=== PATIENT | male | born 1995 | race Caucasian/White ===

== ENCOUNTER 2023-06-23 17:49 | Emergency (ER) | payer OTHER ==
[~2023-06-23] VITALS: Ht 180.3 cm; Wt 97.5 kg
[2023-06-23 18:18] VITALS: BP_SYST 132; PULSE 87; RESP 19; TEMP 98.7; O2SAT 97
[2023-06-23] MEDS ORDERED: LIDOCAINE MPF 1% 50 MG/5 ML AMP INJ ONE (19:45)
[2023-06-23] MEDS ORDERED: LIDOCAINE 1%, 20 ML MDV 20 ML ONE (19:46)
[2023-06-23 20:16] VITALS: BP_SYST 132; PULSE 87; RESP 19; TEMP 98.7; O2SAT 97
== END 2023-06-23 20:16 | disposition home or self-care (01) ==
LOC: SED 17:49
DX: S61.213A Laceration without foreign body of left middle finger without damage to nail, initial encounter (principal); Z91.018 Allergy to other foods; Z79.899 Other long term (current) drug therapy; W26.8XXA Contact with other sharp object(s), not elsewhere classified, initial encounter; Y93.89 Activity, other specified; Y92.89 Other specified places as the place of occurrence of the external cause; Y99.8 Other external cause status
CPT/HCPCS: 99283; 29130; 12002; J2001 ×2